=== PATIENT | female | born 1965 | race Caucasian/White ===

== ENCOUNTER 2018-04-09 19:04 | Inpatient (IN) | payer BC ==
[~2018-04-09] VITALS: Ht 172.7 cm; Wt 79.4 kg
[2018-04-09 19:10] VITALS: BP 126/69
--- NOTE | 2018-04-09 19:12 | NUR ---
TO BED # 9 AMBULATORY, REPORT GIVEN TO ASH LEO.
--- NOTE | 2018-04-09 19:15 | NUR ---
53Y/F BIB FAMILY C/O ABD PAIN, RADIATING TO HER BACK SINCE YESTERDAY, WITH N/V. AAOX4 WITH EVEN AND STEADY GAIT; PATIENT STATES PAIN OF 10/10 AT THIS TIME; VSS; PATIENT POSITIONED FOR COMFORT; HOB ELEVATED; BEDRAILS UP X1; BED DOWN. ER MD MADE AWARE OF PT STATUS.
[2018-04-09] MEDS ORDERED: NACL 0.9% 1,000 ML IV SCH (20:08)
[2018-04-09] MEDS ORDERED: ONDANSETRON 4 MG/2 ML VIAL IVP ONE (20:10)
[2018-04-09] MEDS ORDERED: KETOROLAC 30 MG/ML VIAL IVP ONE (20:10)
[2018-04-09] MEDS ORDERED: MORPHINE SULFATE 4 MG/ML SYR IVP ONE (20:10)
[2018-04-09 20:29] LABS: BASOPHILS % (AUTO) 0.2 % (0.0-2.0); EOSINOPHILS # (AUTO) 0.1 K/uL (0-0.4); EOSINOPHILS % (AUTO) 0.8 % (0.0-4.0); HEMOGLOBIN 15.7 g/dL (12.0-16.0); LYMPHOCYTES # (AUTO) 1.3 K/uL (2.5-16.5); LYMPHOCYTES % (AUTO) 11.8 % (20.5-51.1); MEAN CORPUSCULAR HEMOGLOBIN 31 pg (27-31); MEAN CORPUSCULAR HGB CONC 33 g/dL (33-37); MEAN CORPUSCULAR VOLUME 91.9 fL (80-94); MONOCYTES # (AUTO) 0.6 K/uL (0.8-1.0); MONOCYTES % (AUTO) 5.8 % (1.7-9.3); NEUTROPHILS # (AUTO) 8.9 K/uL (1.8-7.7); NEUTROPHILS % (AUTO) 81.4 % (42.2-75.2); PLATELET COUNT (AUTO) 261 K/uL (140-450); RED BLOOD CELL COUNT(AUTO) 5.12 MIL/uL (4.20-5.40); RED CELL DISTRIBUTION WIDTH 12.8 % (11.6-13.7)
[2018-04-09 20:31] LABS: APPEARANCE,URINE CLEAR (CLEAR); BILIRUBIN,URINE NEGATIVE (NEGATIVE); BLOOD, URINE TRACE-I (NEGATIVE); COLOR,URINE YELLOW (YELLOW); LEUKOCYTE ESTERASE ,URINE NEGATIVE (NEGATIVE); NITRITE, URINE NEGATIVE (NEGATIVE); UGLUCOSE NEGATIVE (NEGATIVE)
[2018-04-09 20:45] LABS: ALBUMIN 4.3 g/dL (3.4-5.0); TOTAL BILIRUBIN 0.8 mg/dL (0.0-1.0)
--- NOTE | 2018-04-09 20:46 | NUR ---
PT BACK FROM CT
[2018-04-09 21:32] LABS: ANION GAP 17.6 (8-16); CARBON DIOXIDE 24.9 mmol/L (21-32); CREATININE 0.8 mg/dL (0.6-1.3); POTASSIUM 3.5 mmol/L (3.5-5.1)
[2018-04-09 21:40] LABS: RBC,URINE 0-5 (RARE) /HPF (0-5); WBC,URINE 0-5 (RARE) /HPF (0-5)
[2018-04-09 21:41] LABS: URINE AMORPHOUS URATE 1+ /HPF (None Seen)
--- NOTE | 2018-04-09 21:42 | NUR ---
PT IS IN BED RESTING. FAMILY AT BEDSIDE.
--- NOTE | 2018-04-09 23:02 | NUR ---
IS WITH PT
[2018-04-10] MEDS ORDERED: NACL 0.9% 1,000 ML IV SCH (00:23)
[2018-04-10] MEDS ORDERED: ONDANSETRON 4 MG/2 ML VIAL IVP PRN (00:25)
[2018-04-10] MEDS ORDERED: ACETAMINOPHEN 325 MG TAB PO PRN (00:25)
[2018-04-10] MEDS ORDERED: HYDROcodone/APAP 7.5/325 MG 1 TAB PO PRN (00:25)
[2018-04-10] MEDS ORDERED: BISACODYL 10 MG SUPP RC ONE (00:30)
[2018-04-10] MEDS ORDERED: KETOROLAC 15 MG/ML VIAL IVP PRN (00:30)
[2018-04-10 00:41] LABS: PROTHROMBIN TIME 11.2 secs (10.8-13.4)
--- NOTE | 2018-04-10 00:48 | NUR ---
Patient will be admitted to care of DR. faust . Admited to tele . Will go to room 120 A. Belongings list completed. Report to TAMMI. PT VSS WAS STABLE.
[2018-04-10 00:50] VITALS: BP 111/56
--- NOTE | 2018-04-10 00:50 | NUR ---
RECEIVED REPORT FROM ER NURSE ASH-FELIPA. PT ARRIVED ONTO UNIT VIA GURNEY. PT AMBULATORY AND WALKED FROM THE GURNEY TO PT BED. AOX4, ON ROOM AIR, TELE MONITORING-SR. DISCUSSED PLAN OF CARE AND PT VERBALIZED UNDERSTANDING. UPDATED WHITE BOARD. NO S/S OF RESPIRATORY DISTRESS OR DISCOMFORT NOTED. MRSA COLLECTED. ORIENTED PT TO ROOM, CALL LIGHT AND BED. HAT PLACED IN BATHROOM, PT AWARE OF FECAL OCCULT BLOOD COLLECTION NEEDED. BED IN LOWEST POSITION, BED BREAKS ON, SIDE RAILS UP. BED SIDE TABLE AND CALL LIGHT WITHIN REACH. WILL CONTINUE TO MONITOR.
[2018-04-10 00:53] LABS: BARBITURATE, URINE NEG. ng/ml (NEG <=200); BENZODIAZEPINE, URINE NEG. ng/mL (NEG <=200); CANNABINOID, URINE NEG. ng/mL (NEG <=50); COCAINE, URINE NEG. ng/mL (NEG <=300); OPIATE, URINE NEG. ng/mL (NEG <=2000); PHENCYCLIDINE SCREEN,URINE NEG. ng/mL (NEG <=25)
[2018-04-10 00:54] LABS: CHOL/HDL RATIO 2.6 (1-4.5); MAGNESIUM 1.8 mg/dL (1.8-2.4); PHOSPHORUS 3.7 mg/dL (2.5-4.9); THYROID STIMULATING HORMONE 3.12 uIU/mL (0.34-3.74)
--- NOTE | 2018-04-10 01:46 | NUR ---
NOHELIA CALLED AND SAID WILL START SBFT FROM 7 AM.BECAUSE SHE IS BUSY AND CAN NOT DO THAT NOW.INFORMED DR DAHL RESIDENT. SHE SAID THAT IS OK.
--- NOTE | 2018-04-10 02:00 | NUR ---
NORMAL SALINE 0.9% HUNG AND INFUSING WELL. SUPPOSITORY GIVEN. PT HAD EXTRA SMALL BOWEL MOVEMENT. COLLECTED FECAL OCCULT BLOOD SPECIMEN AND DELIVERED IT TO LAB. PT CONTINUES TO FEEL PRESSURE AND ADVISED TO CONTINUE TO USE RESTROOM. WILL CONTINUE TO MONITOR.
[2018-04-10 04:00] VITALS: BP 108/61
--- NOTE | 2018-04-10 04:00 | NUR ---
PT CONTINUES TO SLEEP IN BED. NO S/S OF RESPIRATORY DISTRESS OR DISCOMFORT NOTED AT THIS TIME. WILL CONTINUE TO MONITOR.
--- NOTE | 2018-04-10 04:01 | NUR ---
VITAL SIGNS TAKEN AND TOLERATED WELL. NO S/S OF RESPIRATORY DISTRESS OR DISCOMFORT NOTED AT THIS TIME. WILL CONTINUE TO MONITOR.
[2018-04-10] MEDS: SIMETHICONE 80 MG TAB.CHEW PO SCH ×3 (04:29→20:57)
--- NOTE | 2018-04-10 04:30 | NUR ---
SCHEDULED MEDICATION GIVEN AND TOLERATED WELL. NO S/S OF RESPIRATORY DISTRESS OR DISCOMFORT NOTED. WILL CONTINUE TO MONITOR.
--- NOTE | 2018-04-10 06:00 | NUR ---
PT CONTINUES TO SLEEP IN BED. NO S/S OF RESPIRATORY DISTRESS OR DISCOMFORT NOTED AT THIS TIME. WILL CONTINUE TO MONITOR.
[2018-04-10 06:36] LABS: BASOPHILS % (AUTO) 0.4 % (0.0-2.0); EOSINOPHILS # (AUTO) 0.3 K/uL (0-0.4); HEMATOCRIT 38.4 % (36-48); HEMOGLOBIN 12.9 g/dL (12.0-16.0); LYMPHOCYTES % (AUTO) 21.1 % (20.5-51.1); MEAN CORPUSCULAR HEMOGLOBIN 31 pg (27-31); MEAN CORPUSCULAR HGB CONC 34 g/dL (33-37); MEAN CORPUSCULAR VOLUME 92.7 fL (80-94); MONOCYTES # (AUTO) 0.9 K/uL (0.8-1.0); MONOCYTES % (AUTO) 9.5 % (1.7-9.3); NEUTROPHILS # (AUTO) 6.3 K/uL (1.8-7.7); PLATELET COUNT (AUTO) 219 K/uL (140-450); RED BLOOD CELL COUNT(AUTO) 4.15 MIL/uL (4.20-5.40); RED CELL DISTRIBUTION WIDTH 12.8 % (11.6-13.7); WHITE BLOOD COUNT (AUTO) 9.5 K/uL (4.8-10.8)
[2018-04-10 07:03] LABS: CARBON DIOXIDE 25.6 mmol/L (21-32); CREATININE 0.7 mg/dL (0.6-1.3); POTASSIUM 3.6 mmol/L (3.5-5.1)
--- NOTE | 2018-04-10 07:09 | NUR ---
ENDORSED PT CARE TO DAY SHIFT NURSE BOB FOR CONTINUITY OF CARE.
[2018-04-10 07:12] LABS: MAGNESIUM 1.8 mg/dL (1.8-2.4); PHOSPHORUS 4.1 mg/dL (2.5-4.9)
--- NOTE | 2018-04-10 07:12 | NUR ---
RECEIVED REPORT FROM NIGHTSHIFT NURSE AT BEDSIDE. PATIENT IS AWAKE AT THIS TIME. PATIENT IS ALERT AND ORIENTED X4. PATIENT PRESENTS IN SEMI-FOWLERS POSITION. IV NOTED ON HER LEFT AC 20G. PATIENT DOES NOT COMPLAIN OF PAIN AT THIS TIME. NO DISTRESS NOTED. PUT CALL LIGHT WITHIN REACH OF PATIENT. INSTRUCTED PATIENT TO CALL IF SHE NEEDS HELP WITH ANYTHING. PATIENT UNDERSTANDS THAT SHE IS NPO AT THIS TIME. UPDATED BOARD IN PATIENT'S ROOM. LOWERED BED TO LOWEST SETTING. WILL CONTINUE TO MONITOR PATIENT.
[2018-04-10] MEDS: DEXT 5% /NACL 0.9% 1,000 ML IV SCH ×2 (07:15→17:15)
[2018-04-10 08:00] VITALS: BP 102/61
--- NOTE | 2018-04-10 08:29 | NUR ---
PATIENT HAS BEEN SCREENED AND CATEGORIZED MODERATE NUTRITION RISK. PATIENT WILL BE SEEN WITHIN 3-5 DAYS OF ADMISSION. 04/12/18 04/14/[address]
[2018-04-10] MEDS: PANTOPRAZOLE 40 MG INJ VIAL IVP SCH (08:36)
[2018-04-10] MEDS: LACTOBACILLUS RHAMNOSUS GG 1 EACH CAP PO SCH (08:36)
[2018-04-10] MEDS: DOCUSATE SODIUM 100 MG GELCAP PO SCH ×2 (08:36→20:57)
--- NOTE | 2018-04-10 08:37 | NUR ---
PATIENT TOOK ALL AM MEDICATIONS. PATIENT TOLERATED WELL. WILL CONTINUE TO MONITOR PATIENT.
--- NOTE | 2018-04-10 10:57 | NUR ---
PATIENT RESTING AT THIS TIME. NO DISTRESS NOTED. WILL CONTINUE TO MONITOR PATIENT.
[2018-04-10 12:00] VITALS: BP 107/62
[2018-04-10] MEDS ORDERED: PIPER/TAZO 3.375GM/D5W PREMIX 50 ML IV SCH (12:00)
--- NOTE | 2018-04-10 12:05 | NUR ---
RECEIVED A CALL FROM PRASANNA KIMBROUGH IN ADMITTING THIS AM. PHONE [facility] [place], . NO CLINICALS NEEDED PER ARYA. AUTH [id number].
--- NOTE | 2018-04-10 13:22 | NUR ---
PATIENT ASLEEP AT THIS TIME. NO DISTRESS NOTED. WILL CONTINUE TO MONITOR PATIENT.
--- NOTE | 2018-04-10 15:08 | NUR ---
PATIENT RESTING AT THIS TIME. NO DISTRESS NOTED. WILL CONTINUE TO MONITOR PATIENT.
[2018-04-10 16:00] VITALS: BP 112/52
--- NOTE | 2018-04-10 17:22 | NUR ---
PATIENT RESTING AT THIS TIME. NO DISTRESS NOTED. WILL CONTINUE TO MONITOR PATIENT.
--- NOTE | 2018-04-10 19:25 | NUR ---
GAVE REPORT TO NIGHTSHIFT NURSE. FAMILY MEMBER AT BEDSIDE. PATIENT IN STABLE CONDITION.
--- NOTE | 2018-04-10 19:30 | NUR ---
RECEIVED REPORT FROM DAY SHIFT, PATIENT RESTING IN BED, AT THE BEDSIDE, NO S/S OF DISTRESS NOTED, RESPIRATION EVEN AND UNLABORED, IV PATEN AND INTACT, PLAN OF CARE DISCUSSED, PATIENT VERBALIZED UNDERSTANDING, CALL LIGHT WITHIN REACH, SAFETY MEASURE ENSURED, WILL CONTINUE TO MONITOR.
--- NOTE | 2018-04-10 20:59 | NUR ---
DUE MEDICATION GIVEN, PATIENT TOLERATED WELL. NO S/S OF DISTRESS NOTED, RESPIRATION EVEN AND UNLABORED, ON ROOM AIR. CALL LIGHT WITHIN REACH, SAFETY MEASURE ENSURED, WILL CONTINUE TO MONITOR.
--- NOTE | 2018-04-10 22:35 | NUR ---
PATIENT IS SLEEPING, NO S/S OF DISTRESS NOTED, RESPIRATION EVEN AND UNLABORED, CALL LIGHT WITHIN REACH, SAFETY MEASURE ENSURED, WILL CONTINUE TO MONITOR.
[2018-04-11] VITALS: BP 110/66
--- NOTE | 2018-04-11 00:15 | NUR ---
VITAL SIGNS STABLE. NO S/S OF DISTRESS NOTED, CALL LIGHT WITHIN REACH, SAFETY MEASURE ENSURED, WILL CONTINUE TO MONITOR.
--- NOTE | 2018-04-11 02:47 | NUR ---
PATIENT IS SLEEPING, NO S/S OF DISTRESS NOTED, RESPIRATION EVEN AND UNLABORED, CALL LIGHT WITHIN REACH, SAFETY MEASURE ENSURED, WILL CONTINUE TO MONITOR.
[2018-04-11] MEDS: SIMETHICONE 80 MG TAB.CHEW PO SCH ×2 (04:07→12:31)
--- NOTE | 2018-04-11 04:07 | NUR ---
DUE MEDICATION GIVEN, PATIENT TOLERATED WELL. NO S/S OF DISTRESS NOTED, RESPIRATION EVEN AND UNLABORED, CALL LIGHT WITHIN REACH, SAFETY MEASURE ENSURED, WILL CONTINUE TO MONITOR.
[2018-04-11] MEDS ORDERED: ONDA4TAB PO (06:31)
[2018-04-11] MEDS ORDERED: LACT10CA1 PO (06:31)
[2018-04-11] MEDS ORDERED: NITR100C7 PO (06:31)
--- NOTE | 2018-04-11 06:39 | NUR ---
PATIENT IS AWAKE, NO S/S OF DISTRESS NOTED, RESPIRATION EVEN AND UNLABORED, CALL LIGHT WITHIN REACH, SAFETY MEASURE ENSURED, WILL CONTINUE TO MONITOR.
--- NOTE | 2018-04-11 07:20 | NUR ---
ENDORSED PLAN OF CARE TO DAY SHIFT RN, PATIENT IS IN STABLE CONDITION.
[2018-04-11 07:28] LABS: BASOPHILS % (AUTO) 0.4 % (0.0-2.0); EOSINOPHILS # (AUTO) 0.3 K/uL (0-0.4); EOSINOPHILS % (AUTO) 4.2 % (0.0-4.0); HEMATOCRIT 38.1 % (36-48); HEMOGLOBIN 12.6 g/dL (12.0-16.0); LYMPHOCYTES # (AUTO) 1.9 K/uL (2.5-16.5); LYMPHOCYTES % (AUTO) 27.2 % (20.5-51.1); MEAN CORPUSCULAR HEMOGLOBIN 31 pg (27-31); MEAN CORPUSCULAR HGB CONC 33 g/dL (33-37); MEAN CORPUSCULAR VOLUME 93.2 fL (80-94); MONOCYTES # (AUTO) 0.6 K/uL (0.8-1.0); MONOCYTES % (AUTO) 8.2 % (1.7-9.3); NEUTROPHILS # (AUTO) 4.1 K/uL (1.8-7.7); PLATELET COUNT (AUTO) 189 K/uL (140-450); RED BLOOD CELL COUNT(AUTO) 4.09 MIL/uL (4.20-5.40); RED CELL DISTRIBUTION WIDTH 12.7 % (11.6-13.7); WHITE BLOOD COUNT (AUTO) 6.8 K/uL (4.8-10.8)
--- NOTE | 2018-04-11 07:30 | NUR ---
RECEIVED ON BED AAOX4. NO SOB NOTED. NO C/O PAIN AT THIS TIME. IV TO LT AC PATENT AND INTACT. CHEST CLEAR. ABDOMEN SOFT, BOWEL SOUNDS PRESENT. NO EDEMA NOTED. INSTRUCTED PT TO CALL FOR ASSISTANCE, BED ON LOW POSITION, 3 SIDE RAILS UP, CALL LIGHT WITHIN REACH, PT VERBALIZED UNDERSTANDING.
[2018-04-11 07:38] LABS: ANION GAP 9.1 (8-16); CARBON DIOXIDE 29.6 mmol/L (21-32); CREATININE 0.7 mg/dL (0.6-1.3); POTASSIUM 3.7 mmol/L (3.5-5.1)
[2018-04-11 07:45] LABS: MAGNESIUM 1.7 mg/dL (1.8-2.4); PHOSPHORUS 3.4 mg/dL (2.5-4.9)
[2018-04-11 08:00] VITALS: BP 107/65
[2018-04-11] MEDS: DOCUSATE SODIUM 100 MG GELCAP PO SCH (09:09)
[2018-04-11] MEDS: PANTOPRAZOLE 40 MG INJ VIAL IVP SCH (09:09)
[2018-04-11] MEDS: LACTOBACILLUS RHAMNOSUS GG 1 EACH CAP PO SCH (09:09)
--- NOTE | 2018-04-11 09:16 | NUR ---
PT TOLERATED MORE THAN 50% OF BREAKFAST SERVED. NO N&V NOTED.
[2018-04-11] MEDS ORDERED: DOCU-299 PO (09:32)
[2018-04-11] MEDS ORDERED: ACET-8386 PO (09:32)
[2018-04-11] MEDS ORDERED: MAGNESIUM OXIDE 400 MG TAB PO SCH (11:00)
--- NOTE | 2018-04-11 12:40 | NUR ---
PT DID NOT CONSUMED ALL HER LUNCH, STATED SHE WILL HAVE SOMETHING FROM OUTSIDE WHEN SHE GOES.
--- NOTE | 2018-04-11 13:10 | NUR ---
ESCORTED PT OUT, AMBULATORY. NO SOB NOTED. NO COMPLAINTS MADE. PT IS DISCHARGED HOME WITH .
--- NOTE | 2018-04-13 12:42 | NUR ---
RECEIVED CALL FROM [employer]. FAXED CLINICALS TO [facility] AT [phone]
== END 2018-04-11 13:10 | disposition home or self-care (01) | DRG 392 ==
LOC: MED 19:04 → MTU 04-10 00:08
PROVIDERS: ADMIT General Practice; ATTEND General Practice
DX: K52.9 Noninfective gastroenteritis and colitis, unspecified (principal); E78.5 Hyperlipidemia, unspecified; K57.30 Diverticulosis of large intestine without perforation or abscess without bleeding; Z86.718 Personal history of other venous thrombosis and embolism; Z98.891 History of uterine scar from previous surgery
CPT/HCPCS: 36415; 71045; 74250; 76700; 80048; 80053; 80305; 81001; 81025; 82140; 82150; 82272; 83036; 83605; 83690; 83735; 84100; 84439; 84443; 85025; 85610; 85730; 87081; 87086; 93005; 93970; 96361; 96374; 96375; 99285; C9113; J0696; J1885; J2270; J2405; J2543; J7030; J7042; J7060; Q0092